=== PATIENT | male | born 1970 | race Caucasian/White ===

== ENCOUNTER 2016-07-07 21:18 | Emergency (ER) | payer MEDICARE ==
[2016-07-07 22:02] LABS: HEMOGLOBIN 14.6 gm/dl (14.0-17.5); RED BLOOD COUNT 4.85 M/UL (4.20-5.50); WHITE BLOOD COUNT 8.6 K/UL (4.5-11.0)
[2016-07-07 22:23] LABS: BUN/CREATININE RATIO 7 (0-10)
== END 2016-07-07 23:00 | disposition home or self-care (01) ==
LOC: ER1 21:18
PROVIDERS: Specialist/Technologist Athletic Trainer
DX: S91.141A Puncture wound with foreign body of right great toe without damage to nail, initial encounter (principal); F17.200 Nicotine dependence, unspecified, uncomplicated; W22.8XXA Striking against or struck by other objects, initial encounter; Y92.009 Unspecified place in unspecified non-institutional (private) residence as the place of occurrence of the external cause
CPT/HCPCS: 36415; 73620; 80053; 85025; 85610; 85730; 96374; 96375; 99283; J2270; J2405